=== PATIENT | female | born 1975 | race Caucasian/White ===

== ENCOUNTER 2019-01-21 15:16 | Outpatient (CLI) | payer BC ==
--- NOTE | 2019-01-21 23:03 | HP ---
HISTORY OF PRESENT ILLNESS: Ms. Marie Gonzalez is a very pleasant 43-year- old, who [facility] for evaluation of edema of the right lower extremity. The patient was referred to the [facility] by Dr. Viral Flores on 01/01/2019. The patient states that she was diagnosed with deep venous thrombosis of the right lower extremity, which was associated with the development of significant edema of her right lower extremity. The patient states that the edema of her right lower extremity precluded wearing a shoe. The patient states that she was prescribed compression stockings by Dr. Flores. She states that with the use of her compression stockings, the swelling decreased dramatically over 4 to 5 days. 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 She states that when she wakes up in the morning, she has no swelling of her right lower extremity. The patient has no other complaints today. She denies any fever or chills. PAST MEDICAL HISTORY: History of headaches. PAST SURGICAL HISTORY: 1. Left knee surgery. 2. Left elbow surgery. 3. Left wrist surgery. 4. Right hand surgery. 5. [place] teeth extraction. MEDICATIONS: 1. Topiramate. 2. Phentermine. 3. Xarelto. 4. Tylenol p.r.n. 5. Vitamin D3. 6. Iron. ALLERGIES: NO KNOWN DIAGNOSED ALLERGIES. SOCIAL HISTORY: Negative for tobacco or EtOH use. FAMILY HISTORY: Significant for diabetes mellitus. The patient states that her father was diagnosed with diabetes mellitus. Family history is negative for coronary artery disease. PHYSICAL EXAMINATION: VITAL SIGNS: Temperature 98.6, pulse 113, respirations 21, and blood pressure 129/69. GENERAL: A 43-year-old female, sitting on table in examination room, in no acute distress. HEENT: Normocephalic and atraumatic. NECK: No nuchal rigidity. CHEST: Clear to auscultation. CV: Regular rate and rhythm. ABDOMEN: Soft. EXTREMITIES: Edema of the right lower extremity is present. Circumferences of the right lower extremity at the foot, ankle, calf, and knee are 23 cm, 28 cm, 59 cm , and 56 cm. No open wounds are present over the right lower extremity. No cellulitis of the right lower extremity is present. A pedal pulse is palpable on the right. NEUROLOGIC: Grossly nonfocal. ASSESSMENT AND PLAN: 1. Right lower extremity edema as described above. The patient states that the edema of her right lower extremity has markedly decreased with the use of a compression stocking. She states that her edema resolves completely with elevation during the night. She reports no edema of her right lower extremity upon awakening. At this time, the patient declines treatment with wraparound compression or referral to Occupational Therapy for instruction in MLD. Furthermore, the patient declined treatment with a pneumatic pump at this time. I have told Ms. Gonzalez that she may benefit from aquatic therapy, which she states she will consider. She states that should she require the treatment for the edema of her right lower extremity, she will discuss referral for evaluation for venous ablation with her physician, Dr. Flores. Ms. Gonzalez will be discharged from clinic today with followup on a p.r.n. basis. The patient understands and is in agreement with the preceding treatment plan. 2. History of headaches. Job ID: [id number] [facility]
== END 2019-01-21 15:17 | disposition home or self-care (01) ==
LOC: WCC 15:16
PROVIDERS: ATTEND Family Medicine
DX: R60.0 Localized edema (principal); R51 Headache
CPT/HCPCS: 97602; 99203; G0463

== ENCOUNTER 2019-03-20 13:57 | Outpatient (CLI) | payer BC ==
--- NOTE | 2019-03-20 14:40 | RAD ---
CHEST TWO VIEWS: HISTORY: Dyspnea. FINDINGS: The lung lopez appear clear. No infiltrate or vascular congestion. Heart size is normal. Osseous st ructures are unremarkable. IMPRESSION: Unremarkable chest. POS: [facility]
--- NOTE | 2019-03-20 15:35 | ULT ---
RT LOWER EXTREMITY VENOUS ULTRASOUND WITH DOPPLER: HISTORY: Patient is on blood thinners for known DVT. COMPARISON: Prior imaging is not available. TECHNIQUE: Grayscale, color flow, Doppler imaging and spectral wave was performed in the right lower extremity v enous system FINDINGS: There is compressibility, presence of flow and augmentation in the common femoral vein, and femoral v ein. There is flow in the greater saphenous vein, profunda femoral vein and posterior tibial vein. There is echogenic material and lack of compression and flow in the popliteal vein. IMPRESSION: Popliteal vein thrombus. CODE T Transcribed Date/Time: 03/20/2019 3:56 PM
== END 2019-03-20 13:58 | disposition home or self-care (01) ==
LOC: RAD 13:57
PROVIDERS: ATTEND Internal Medicine Pulmonary Disease
DX: R06.00 Dyspnea, unspecified (principal); I82.431 Acute embolism and thrombosis of right popliteal vein
CPT/HCPCS: 71046